=== PATIENT | male | born 1990 | race African-American/Black ===

== ENCOUNTER 2017-09-01 02:32 | Emergency (ER) | payer OTHER ==
[~2017-09-01] VITALS: Ht 175.3 cm; Wt 76.2 kg
[~2017-09-01 02:32] MED LIST: CALC1TAB25 PO; CHOL2000 PO; CITA10TA4 PO; CYAN100020 PO; GREE150C5 PO; HRBLS PO; MULT-281 PO; OMEG120013 PO
[2017-09-01 02:34] VITALS: TEMP 36.6; Ht 175.3 cm; Wt 76.2 kg
[2017-09-01 02:48] VITALS: O2SAT 99
[2017-09-01 03:09] LABS: BUN/CREATININE RATIO 10.7 (10-20); CALCIUM 9.1 mg/dl (8.5-10.1); CREATININE 1.26 mg/dl (0.60-1.40); POTASSIUM 3.3 mmol/L (3.5-5.1)
[2017-09-01 11:56] VITALS: BP 113/62; PULSE 83; O2SAT 97
--- NOTE | 2017-09-01 12:05 | EMERGENCY ROOM VISIT NOTE ---
ED Visit Note I reevaluated this patient for Norma Del Cid's PASandi at 12:00 noon. She was awake alert and oriented and stated that he had a friend he was going to pick him up and take him to his home at [address] [place], [place] [id number] Shaniko,[place]
--- NOTE | 2017-09-01 21:47 | EMERGENCY ROOM VISIT NOTE ---
History First contact with patient: 02:36 Chief Complaint: ALCOHOL OVERDOSE Stated Complaint: ALCOHOL Nursing Triage Summary: Pt brought in by EMS. Pt was found in another person's apartment making popcorn and sleeping on couch. Pt drinking unknown amounts alcohol and ? smoking unknown substance. No obvious trauma noted. Pt is awake. Oriented x 1. History of Present Illness The patient is a 27 year old male who presents to the Emergency Room with complaints of alcohol overdose who also smoked some type of material. Patient states he had a lot of alcohol. He is unsure what he smoked tonight. Patient is highly intoxicated. He stumbled into someone else's apartment and made my way popcorn and watch the TV. The police were summoned. EMS was summoned and patient was brought here. Patient is highly intoxicated and has no medical complaints. Review of Systems Unable to obtain secondary to altered mental status from alcohol overdose Past Medical/Surgical History Unable to obtain secondary to altered mental status from alcohol overdose Family History Patient reports no known family medical history. Social History Smoking Status: Never Smoker Alcohol Use: occasionally Drug Use: none Marital Status: in relationship Occupation Status: Telly student Current/Historical Medications Unable to Obtain Active Prescriptions or Reported Meds Physical Exam Vital Signs Date Time Temp Pulse Resp B/P (MAP) Pulse Ox O2 Delivery O2 Flow Rate FiO2 09/01/17 11:56 83 18 113/62 97 Room Air 09/01/17 10:10 85 18 101/42 98 Room Air 09/01/17 08:11 90 18 98/50 94 Room Air 09/01/17 06:15 88 16 120/60 98 Room Air 09/01/17 04:15 85 20 104/49 97 Room Air 09/01/17 02:48 99 Room Air 09/01/17 02:48 99 Room Air 09/01/17 02:40 103 09/01/17 02:34 36.6 100 16 126/79 97 Room Air Physical Exam PHYSICAL EXAM: VITALS: Vitals are noted on the nurse's note and reviewed by myself. Vital signs stable. GENERAL: Pleasant male laughing and highly intoxicated, in no acute distress, nondiaphoretic, well-developed well-nourished. The patient is visibly intoxicated. SKIN: The skin was without obvious lacerations, abrasions, or rashes. There is no tenting of the skin. Capillary reflex less than 2 seconds. HEENT: Normocephalic, atraumatic. PERRLA. EOMI. Conjunctiva with mild injection without icterus. Tympanic membranes without erythema or effusion bilaterally no hemotympanum. External auditory canals are clear. Nares patent bilaterally. No epistaxis. Oropharynx without erythema or exudate. Uvula midline. Oral mucosal moist. No lymphadenopathy. Neck is supple without cervical spine tenderness. HEART: Regular rate and rhythm without murmurs gallops or rubs. Peripheral pulses 2+. LUNGS: Clear to auscultation bilaterally without wheezes, rales or rhonchi. ABDOMEN: Positive bowel sounds x 4. Normal tympanic percussion. Soft, nontender, without masses or organomegaly. MUSCULOSKELETAL: Gross motor function of the upper and lower extremities intact. The patient has a staggering gait. NEUROLOGIC: The patient is visibly intoxicated. Once they were more sober they were alert and oriented to person place and time. Medical Decision & Procedures Laboratory Results 09/01/17 02:43 Test 09/01/17 02:43 Anion Gap 10.0 mmol/L (3-11) Est Creatinine Clear Calc Drug Dose 89.7 ml/min Estimated GFR () 91.3 Estimated GFR (Non- 78.8 BUN/Creatinine Ratio 10.7 (10-20) Calcium Level 9.1 mg/dl (8.5-10.1) Ethyl Alcohol mg/dL 356.0 mg/dl (0-3) ED Course Prior records/ancillary studies reviewed. Triage Nursing notes reviewed. Additional history obtained from EMS. The patient's history was concerning for altered mental status and a possible alcohol overdose. Differential diagnosis: Etiologies such as alcohol intoxication, toxicologic, infection, hypoglycemia, electrolyte abnormalities, cardiac sources, intracerebral event, neurologic, as well as others were entertained. Physical examination: As above. The patient is clinically intoxicated. no trauma noted. ER treatment provided: Monitoring Aspiration precautions The patient was frequently reassessed. Diagnostic interpretation by me: Cardiac monitoring did not reveal any evidence of dysrhythmia. The labs revealed mild hypokalemia. The patient's blood alcohol level was 356 mg /dL. While the patient was highly intoxicated he began to cry did not understand why he was in the ER. He was told multiple times that he was found in someone else' s house. Case signed out to GEENA Morris, pending reevaluation and sobering up in stable condition. This appears to be consistent with an overdose of alcohol. By the evaluation outlined above emergent etiologies such as trauma, infection, hypoglycemia, electrolyte abnormalities, cardiac sources, intracerebral event, neurologic,as well as others were deemed relatively unlikely. Medical Decision as above Medication Reconcilliation Current Medication List: was personally reviewed by me Blood Pressure Screening Patient's blood pressure: Normal blood pressure Impression Primary Impression: Alcohol overdose Departure Information Dispostion Home / Self-Care Condition GOOD Prescriptions Unable to Obtain Active Prescriptions or Reported Meds Referrals Manuel Godinez M.D. (PCP) Patient Instructions My [facility] Additional Instructions Keep well-hydrated. Tylenol every 6 hours as needed for pain (Maximum 3000 mg Tylenol in 24 hr period). Follow up with family doctor and/or health services as needed. No driving for the next 24 hours. Recommend no alcohol for the next 48 hours and avoid binge drinking in the future. Return to ER sooner for chest pain, abdominal pain, worsening signs or symptoms or as needed. Problem Qualifiers Primary Impression: Alcohol overdose Encounter type: initial encounter Injury intent: accidental or unintentional Qualified Codes: T51.91XA - Toxic effect of unspecified alcohol , accidental (unintentional), initial encounter
== END 2017-09-01 12:22 | disposition home or self-care (01) ==
LOC: EDBD 02:32 → C.EDB 02:34
DX: T51.91XA Toxic effect of unspecified alcohol, accidental (unintentional), initial encounter (principal)

== ENCOUNTER 2018-01-25 03:43 | Emergency (ER) | payer SELFPAY ==
[2018-01-25] MEDS ORDERED: DIPHTHERIA/TETANUS/PERTUSSIS 0.5 ML SYR/VIAL IM. ONE (04:00)
[2018-01-25 04:04] VITALS: O2SAT 96
[2018-01-25 04:15] LABS: BASO % 0.5 %; BASO ABS # 0.04 K/uL (0-0.2); EOS % 0.2 %; EOS ABS # 0.02 K/uL (0-0.5); HEMATOCRIT 38.4 % (42-52); HEMOGLOBIN 13.5 g/dL (14.0-18.0); IG# 0.02 K/uL (0.00-0.02); LYMPH % 23.8 %; LYMPH ABS # 2.07 K/uL (1.2-3.4); MEAN CELL VOLUME 89.3 fL (80-100); MEAN CORPUSCULAR HEMOGLOBIN 31.4 pg (25-34); MEAN CORPUSCULAR HGB CONC 35.2 g/dl (32-36); MONO % 4.9 %; MONO ABS # 0.43 K/uL (0.11-0.59); NEUT % 70.4 %; NEUT ABS # 6.13 K/uL (1.4-6.5); PLATELET COUNT 323 K/uL (130-400); RED CELL DISTRIBUTION WIDTH CV 12.8 % (11.5-14.5); RED CELL DISTRIBUTION WIDTH SD 41.6 fL (36.4-46.3); WHITE BLOOD COUNT 8.71 K/uL (4.8-10.8)
[2018-01-25 04:39] LABS: ALT/SGPT 43 U/L (12-78); AST/SGOT 51 U/L (15-37); BLOOD UREA NITROGEN 19 mg/dl (7-18); CALCIUM 8.9 mg/dl (8.5-10.1); CARBON DIOXIDE 23 mmol/L (21-32); CREATININE 1.23 mg/dl (0.60-1.40); GLUCOSE 98 mg/dl (70-99); POTASSIUM 3.1 mmol/L (3.5-5.1); SODIUM 135 mmol/L (136-145)
[2018-01-25] MEDS ORDERED: POTASSIUM CHLORIDE 10 MEQ TABCR PO STA (04:47)
[2018-01-25 04:53] LABS: ALKALINE PHOSPHATASE 55 U/L (45-117); TOTAL PROTEIN 7.2 gm/dl (6.4-8.2)
[2018-01-25] MEDS ORDERED: SODIUM CHLORIDE 0.9% 1000ML 1,000 ML IV STA (04:58)
[2018-01-25 06:00] VITALS: TEMP 35.7
--- NOTE | 2018-01-25 07:04 | DIAGNOSTIC IMAGING REPORT ---
CT SCAN OF THE BRAIN WITHOUT IV CONTRAST CLINICAL HISTORY: Head injury. Intoxication. COMPARISON STUDY: CT of the brain dated 02/11/2015. TECHNIQUE: Unenhanced axial CT scan of the brain is performed from the vertex to the skull base. A dose lowering technique was utilized adhering to the principles of ALARA. FINDINGS: Brain parenchyma: The brain parenchyma is normal in appearance. There is no hemorrhage, mass effect, or evidence of acute territorial ischemia by CT criteria. Masterson-white matter is preserved. No extra-axial fluid collection is seen. Ventricles, sulci, cisterns: Normal in configuration. Intracranial vasculature: The visualized intracranial vasculature at the skull base is normal in appearance. Calvarium: There is no depressed calvarial fracture. Sinuses and mastoids: The visualized paranasal sinuses are clear. The mastoid air cells are well pneumatized. Orbits: The bony orbits are grossly intact noting a remote fracture of the right lamina papyracea. IMPRESSION: No acute intracranial abnormality. Electronically signed by: Dmitry Martin M.D. 01/25/2018 7:03 AM Dictated Date/Time: 01/25/2018 7:01 AM
--- NOTE | 2018-01-25 07:09 | DIAGNOSTIC IMAGING REPORT ---
CERVICAL SPINE W/O CLINICAL HISTORY: 27 years-old Male presenting with head/face injury, ETOH. TECHNIQUE: Multidetector CT of the cervical spine was performed without the use of intravenous contrast. IV contrast: None. A dose lowering technique was used consistent with the principles of ALARA (as low as reasonably achievable). COMPARISON: None. CT DOSE (mGy.cm): The estimated cumulative dose is 1149.09 mGy.cm. FINDINGS: Quality Assurance Supervisor Final topogram: Unremarkable. Straightening of normal cervical lordosis likely positional. No acute fracture or subluxation. Vertebral bodies maintain normal height and alignment. Intervertebral discs preserved. No osseous neural foraminal or spinal canal narrowing. Skull base intact. Paraspinal musculature within normal limits allowing for noncontrast technique. Secretions noted in the nasopharynx. Gas and fluid noted in the minimally distended cervical esophagus. Lung apices clear. IMPRESSION: No acute osseous injury of the cervical spine. Electronically signed by: Rios Pires M.D. 01/25/2018 7:08 AM Dictated Date/Time: 01/25/2018 7:05 AM
--- NOTE | 2018-01-25 07:15 | DIAGNOSTIC IMAGING REPORT ---
CT SCAN OF THE FACIAL BONES WITHOUT IV CONTRAST CLINICAL HISTORY: Intoxication. Facial injury. COMPARISON STUDY: CT scan of the facial bones dated 02/11/2015. TECHNIQUE: High-resolution CT scan of the facial bones is performed. Images are reviewed in the axial, sagittal, and coronal planes. IV contrast was not administered for this examination. A dose lowering technique was utilized adhering to the principles of ALARA. FINDINGS: The skeletal structures are well mineralized. There is no evidence of facial bone fracture. There is chronic posttraumatic deformity of the right lamina papyracea. The bony orbits are otherwise intact and the orbital contents are within normal limits. The zygomatic arches, nasal bones, and pterygoid plates are preserved. The maxilla and mandible are intact. There are no layering blood products within the paranasal sinuses. Mild mucosal thickening is seen within the maxillary antra. An 11 mm retention cyst is noted in the left maxillary antrum. Trace mucosal thickening is seen in the ethmoid sinuses. The mastoid air cells are clear. The visualized calvarium and upper cervical spine are maintained. Partially imaged brain parenchyma is within normal limits. There is minimal left frontal/supraorbital scalp contusion. Cerumen is noted in the external auditory canals. IMPRESSION: 1. There is no evidence of facial bone fracture. 2. Mild left facial scalp contusion. Electronically signed by: Dmitry Martin M.D. 01/25/2018 7:14 AM Dictated Date/Time: 01/25/2018 7:11 AM
--- NOTE | 2018-01-25 07:20 | DIAGNOSTIC IMAGING REPORT ---
SINGLE VIEW CHEST CLINICAL HISTORY: Change in mental status. Intoxication. FINDINGS: An AP, portable, supine chest radiograph is obtained. No prior studies are available for comparison at the time of dictation. The examination is significantly degraded by portable technique and patient rotation. The cardiomediastinal silhouette is normal for projection. The lungs and pleural spaces are clear. No pneumothorax is seen. The bony thorax is grossly intact. IMPRESSION: No acute cardiopulmonary abnormality. Electronically signed by: Dmitry Martin M.D. 01/25/2018 7:18 AM Dictated Date/Time: 01/25/2018 7:18 AM
[2018-01-25] MEDS ORDERED: POTASSIUM CHLORIDE 10 MEQ TABCR ONE ×2 (11:14→11:15)
[2018-01-25 11:29] VITALS: BP 120/61; PULSE 89; O2SAT 98
--- NOTE | 2018-01-25 17:40 | EMERGENCY ROOM VISIT NOTE ---
ED Visit Note First contact with patient: 08:11 Received this patient in signout from Norma Del Cid PA-C. The patient was intoxicated and on marijuana last night, when he was brought in by EMS. The patient had apparently walked into [facility], then suffered a ground-level fall, face first. He has multiple abrasions noted on his face and back. He was unable to answer questions overnight, so I was asked by Norma to evaluate him when he awakens. Upon awakening, I was summoned by the RN. The patient does have mild recollection of his activities last night, and this is not his first experience with alcohol overdose is. The patient is currently in AA and alcoholic rehab. He does have a psychologist, however his appointment for this week was canceled. I did ask the patient if he would like our assistance with any services, and he declines. My examination is consistent with Norma's, however the patient is no longer slurring his speech, and he is making sense. He is aware of his surroundings. There are multiple abrasions on his face, but he declines any significant pain. The patient plans on calling an Uber to go home, and feels comfortable with this plan. I do feel that this is a reasonable plan. Discharge instructions reviewed. The patient was discharged home in good condition.
--- NOTE | 2018-02-08 02:53 | EMERGENCY ROOM VISIT NOTE ---
History First contact with patient: 03:45 Stated Complaint: etoh History of Present Illness The patient is a 27 year old male who presents to the Emergency Room with complaints of possible alcohol or polysubstance ingestion who was at [facility] staring blankly and then stumbled out of the establishment and face planted onto the cement walkway. EMS was summoned and patient was combative and resisting EMS so the police were summoned and the patient came in handcuffs. Patient is unable to answer any questions and does not respond any questions. Patient is alert but somewhat somnolent. History is obtained from EMS and the police. I am unable to obtain any history from the patient. Review of Systems Unable to obtain secondary to altered mental status Past Medical/Surgical History Unable to obtain secondary to altered mental status Family History Patient reports no known family medical history. Social History Smoking Status: Never Smoker Alcohol Use: occasionally Drug Use: none Marital Status: in relationship Occupation Status: [employer] student Current/Historical Medications Unable to Obtain Active Prescriptions or Reported Meds Physical Exam Vital Signs Date Time Temp Pulse Resp B/P (MAP) Pulse Ox O2 Delivery O2 Flow Rate FiO2 01/25/18 11:29 89 18 120/61 98 01/25/18 10:28 94 18 115/51 98 Room Air 01/25/18 09:44 102 18 98 Room Air 01/25/18 08:44 110 16 104/42 98 Room Air 01/25/18 07:29 81 16 110/58 96 Room Air 01/25/18 07:19 98 01/25/18 06:00 35.7 70 16 99/63 99 Room Air 01/25/18 05:06 35.6 59 16 114/66 98 Room Air 01/25/18 04:33 67 16 118/73 97 Room Air 01/25/18 04:04 96 Room Air 01/25/18 03:49 56 01/25/18 03:46 35.1 67 16 118/74 96 Room Air Physical Exam VITALS: Vitals are noted on the nurse's note and reviewed by myself. Vital signs hypothermic. GENERAL: -[place] male with EtOH odor with multiple facial abrasions and hand abrasions, in no acute distress, nondiaphoretic, well-developed well- nourished. SKIN: Multiple abrasions to face and hands and the rest of the skin was without rashes, erythema, edema, or bruising. There is no tenting of the skin. Capillary reflex less than 2 seconds. HEAD: Normocephalic EARS: External auditory canals clear, tympanic membranes pearly cam without erythema or effusion bilaterally. EYES: Pupils equal round and reactive to light and accommodation. Right eye is brown and left eye is cam with obvious contact in place. Conjunctivae with injection, sclerae without icterus. Extraocular movements intact. NOSE: Patent, turbinates without inflammation or discharge. No sinus tenderness. MOUTH: Mucous membranes moist. Pharynx without erythema or exudate. Uvula midline. Airway patent. Tongue does not deviate. NECK: Supple without nuchal rigidity. No lymphadenopathy. No thyromegaly. Cervical spine is nontender. No JVD. HEART: Regular rate and rhythm without murmurs gallops or rubs. LUNGS: Clear to auscultation bilaterally without wheezes, rales or rhonchi. No retractions or accessory muscle use. ABDOMEN: Positive bowel sounds x 4. Normal tympanic percussion. Soft, nontender, without masses or organomegaly. Mendoza sign negative. No guarding or rebound tenderness. No CVA tenderness MUSCULOSKELETAL: No muscle atrophy, erythema, or edema noted. NEURO: Patient was alert but not oriented to person place and time. Normal sensation to light and sharp touch. No focal neurological deficits. Medical Decision & Procedures Laboratory Results 01/25/18 04:03 Red Blood Count 4.30, Mean Corpuscular Volume 89.3, Mean Corpuscular Hemoglobin 31.4, Mean Corpuscular Hemoglobin Concent 35.2, Mean Platelet Volume 9.0, Neutrophils (%) (Auto) 70.4, Lymphocytes (%) (Auto) 23.8, Monocytes (%) (Auto) 4.9, Eosinophils (%) (Auto) 0.2, Basophils (%) (Auto) 0.5, Neutrophils # (Auto) 6.13, Lymphocytes # (Auto) 2.07, Monocytes # (Auto) 0.43, Eosinophils # (Auto) 0.02, Basophils # (Auto) 0.04 01/25/18 04:03 Test 01/25/18 04:03 01/25/18 04:15 White Blood Count 8.71 K/uL (4.8-10.8) Red Blood Count 4.30 M/uL (4.7-6.1) Hemoglobin 13.5 g/dL (14.0-18.0) Hematocrit 38.4 % (42-52) Mean Corpuscular Volume 89.3 fL (80-100) Mean Corpuscular Hemoglobin 31.4 pg (25-34) Mean Corpuscular Hemoglobin Concent 35.2 g/dl (32-36) Platelet Count 323 K/uL (130-400) Mean Platelet Volume 9.0 fL (7.4-10.4) Neutrophils (%) (Auto) 70.4 % Lymphocytes (%) (Auto) 23.8 % Monocytes (%) (Auto) 4.9 % Eosinophils (%) (Auto) 0.2 % Basophils (%) (Auto) 0.5 % Neutrophils # (Auto) 6.13 K/uL (1.4-6.5) Lymphocytes # (Auto) 2.07 K/uL (1.2-3.4) Monocytes # (Auto) 0.43 K/uL (0.11-0.59) Eosinophils # (Auto) 0.02 K/uL (0-0.5) Basophils # (Auto) 0.04 K/uL (0-0.2) RDW Standard Deviation 41.6 fL (36.4-46.3) RDW Coefficient of Variation 12.8 % (11.5-14.5) Immature Granulocyte % (Auto) 0.2 % Immature Granulocyte # (Auto) 0.02 K/uL (0.00-0.02) Prothrombin Time 10.6 SECONDS (9.0-12.0) Prothromb Time International Ratio 1.0 (0.9-1.1) Activated Partial Thromboplast Time 32.0 SECONDS (21.0-31.0) Partial Thromboplastin Ratio 1.2 Anion Gap 11.0 mmol/L (3-11) Estimated GFR () 94.0 Estimated GFR (Non- 81.1 BUN/Creatinine Ratio 15.1 (10-20) Osmolality 375 mOsm/kg (280-300) Calcium Level 8.9 mg/dl (8.5-10.1) Total Bilirubin 0.8 mg/dl (0.2-1) Direct Bilirubin 0.2 mg/dl (0-0.2) Aspartate Amino Transf (AST/SGOT) 51 U/L (15-37) Alanine Aminotransferase (ALT/SGPT) 43 U/L (12-78) Alkaline Phosphatase 55 U/L (45-117) Total Creatine Kinase 1249 U/L (39-308) Total Protein 7.2 gm/dl (6.4-8.2) Albumin 4.0 gm/dl (3.4-5.0) Salicylates Level < 1.7 mg/dl (2.8-20) Acetaminophen Level < 2 ug/ml (10-30) Ethyl Alcohol mg/dL 354.0 mg/dl (0-3) Urine Color YELLOW Urine Appearance CLEAR (CLEAR) Urine pH 6.0 (4.5-7.5) Urine Specific Leonard 1.007 (1.000-1.030) Urine Protein NEG (NEG) Urine Glucose (UA) NEG (NEG) Urine Ketones NEG (NEG) Urine Occult Blood NEG (NEG) Urine Nitrite NEG (NEG) Urine Bilirubin NEG (NEG) Urine Urobilinogen NEG (NEG) Urine Leukocyte Esterase NEG (NEG) Urine WBC (Auto) /hpf (0-5) Urine RBC (Auto) /hpf (0-4) Urine Hyaline Casts (Auto) /lpf (0-5) Urine Epithelial Cells (Auto) /lpf (0-5) Urine Bacteria (Auto) (NEG) Urine RBC 0-4 /hpf (0-4) Urine WBC 0 /hpf (0-5) Urine Epithelial Cells 0-5 /lpf (0-5) Urine Bacteria NEG (NEG) Urine Hyaline Casts 0 /lpf (0-5) Urine Opiates Screen NEG (NEG) Urine Methadone, Qualitative NEG (NEG) Urine Barbiturates NEG (NEG) Urine Phencyclidine (PCP) Level NEG (NEG) Ur Amphetamine/Methamphetamine NEG (NEG) MDMA (Ecstasy) Screen NEG (NEG) Urine Benzodiazepines Screen NEG (NEG) Urine Cocaine Metabolite NEG (NEG) Urine Marijuana (THC) POS (NEG) Urine Marijuana (THC Carboxy Acid) 23 NG/ML (CUTOFF=5) Medications Administered Medications (Trade) Dose Ordered Sig/Levi Route Start Time Stop Time Status Last Admin Dose Admin Diphtheria/ Pertussis/Tetanus Vacc (Adacel Inj) 0.5 ml ONCE ONCE IM. 01/25/18 04:00 01/25/18 04:01 DC 01/25/18 04:07 0.5 ML Sodium Chloride 1,000 ml @ 999 mls/hr Q1H1M STAT IV 01/25/18 04:58 01/25/18 05:58 DC 01/25/18 05:09 999 MLS/HR Potassium Chloride (Klor-Con M10) 10 meq STK-MED ONCE .ROUTE 01/25/18 11:14 01/25/18 11:15 DC 01/25/18 11:14 10 MEQ Potassium Chloride (Klor-Con M10) 30 meq STK-MED ONCE .ROUTE 01/25/18 11:15 01/25/18 11:16 DC 01/25/18 11:15 30 MEQ ED Course Prior records/ancillary studies reviewed. Triage Nursing notes reviewed. Additional history obtained from EMS and police. The patient's history was concerning for altered mental status and probable overdose. Differential diagnosis: Etiologies such as toxicologic, infection, hypoglycemia, electrolyte abnormalities, cardiac sources, intracerebral event, neurologic, as well as others were entertained. Physical examination: The patient had altered sensorium. Patient trauma noted. ER treatment provided: IV NSS Bear hugger to warm patient up Tetanus Wound care by nursing On reassessment the patient was stable and improving. Diagnostic interpretation by me: The electrocardiogram was negative for pathologic change. There was no QRS widening or interval prolongation. Normal sinus, normal intervals, no acute ST- T wave changes. Impression normal sinus rhythm interpreted by myself The labs revealed mild anemia. Positive marijuana. Hypokalemia this is replaced orally. ETOH 354 Imaging studies: CT HEAD: Comparison is made to prior CT head on 02/11/2015. No acute intracranial abnormality identified. Mild left frontal soft tissue hematoma. No acute fracture. Old fracture deformity of the right lamina papyracea. Small polyp versus mucous retention cyst in the mid right ethmoid air cells. Radiologist: Phoenix Huffman M.D. ADDENDUM - Added by Phoenix Huffman M.D. on 01/25/2018 4:37 AM (-07:00) The apparent skin thickening is likely a variant rather than related to recent trauma as it appears stable compared to prior exam on 02/11/2015. CT FACIAL: Mild left frontal soft tissue hematoma. Question facial skin thickening and/or bruising. No acute facial fracture identified. Mild mucosal thickening in the maxillary sinuses. Small polyp versus mucous retention cyst in the left maxillary sinus. Polyp versus mucous retention cyst versus mucosal thickening in a mid left ethmoid air cell. Old fracture deformity of the right lamina papyracea. Probable cerumen in left greater than right external auditory canals. Radiologist: Phoenix Huffman M.D. CT C SPINE: No acute traumatic abnormality identified. Straightening of the normal cervical lordosis may be related to patient positioning/neck brace. Mild secretions in the upper esophagus. Radiologist: Phoenix Huffman M.D. Chest x-ray with no pneumothorax, free air or consolidation, most likely a loop recorder visualized per my interpretation my attending I saw the patient back in August 2017 for similar event. He had smoked some substance and drink a lot of alcohol. Patient has been here before for alcohol intoxication. This appears to be consistent with an overdose of alcohol with head injury and abrasions with concerns for alcohol abuse. Patient was given IV fluids for the elevated alcohol and osmolarity level and for the elevated CPK. Patient has been here before for alcohol overdose. No acute findings on CT imaging. Patient was still highly intoxicated at time of signout. Patient was reevaluated multiple times. His temperature did improve with the bear hugger. Case is signed out to GEENA Ornelas, pending patient sobering up and reevaluation in stable condition. Medical Decision as above Medication Reconcilliation Current Medication List: was personally reviewed by me Blood Pressure Screening Patient's blood pressure: Normal blood pressure Impression Primary Impression: Alcohol overdose Additional Impressions: Alcohol abuse Anemia Head injury Facial abrasion Hand abrasion Hypokalemia Departure Information Prescriptions Unable to Obtain Active Prescriptions or Reported Meds Referrals No Doctor, Assigned (PCP) Additional Instructions No driving for the next 24 hours. Antibiotic ointment and bandage to the areas until healed. Follow up with family doctor or return for any signs of infection (increasing redness, swelling , drainage, or fever). Keep covered when in sun until fully healed then SPF 50 or higher until scar healed. Recommend that you seek help for your alcohol problem. This is your third time to the ER for alcohol intoxication. Keep well-hydrated. Tylenol every 6 hours as needed for pain (Maximum 3000 mg Tylenol in 24 hr period). Follow up with family doctor and/or health services as needed. Recommend no alcohol for the next 48 hours and avoid binge drinking in the future. Return to ER sooner for chest pain, abdominal pain, worsening signs or symptoms or as needed. Problem Qualifiers Primary Impression: Alcohol overdose Encounter type: initial encounter Injury intent: accidental or unintentional Qualified Codes: T51.91XA - Toxic effect of unspecified alcohol , accidental (unintentional), initial encounter
== END 2018-01-25 11:29 | disposition home or self-care (01) ==
LOC: EDBD 03:43 → C.EDB 03:48
DX: T51.0X1A Toxic effect of ethanol, accidental (unintentional), initial encounter (principal); F10.129 Alcohol abuse with intoxication, unspecified; S00.81XA Abrasion of other part of head, initial encounter; S60.519A Abrasion of unspecified hand, initial encounter; W19.XXXA Unspecified fall, initial encounter; Y92.511 Restaurant or cafe as the place of occurrence of the external cause; D64.9 Anemia, unspecified; E87.6 Hypokalemia